=== PATIENT | female | born 1935 | race Caucasian/White ===

== ENCOUNTER 2016-09-23 14:36 | Emergency (ER) | payer MEDICARE ==
[~2016-09-23] VITALS: Ht 157.5 cm; Wt 68.2 kg
[2016-09-23 14:42] VITALS: BP 167/89; PULSE 77; TEMP 98.5
== END 2016-09-23 16:56 | disposition home or self-care (01) ==
LOC: COL.ER 14:36
DX: S82.832A Other fracture of upper and lower end of left fibula, initial encounter for closed fracture (principal); W01.0XXA Fall on same level from slipping, tripping and stumbling without subsequent striking against object, initial encounter; Y93.01 Activity, walking, marching and hiking; Y92.511 Restaurant or cafe as the place of occurrence of the external cause

== ENCOUNTER 2018-01-11 09:30 | Emergency (ER) | payer MEDICARE ==
[~2018-01-11] VITALS: Ht 154.9 cm; Wt 65.9 kg
[2018-01-11 09:31] VITALS: TEMP 97.8
[2018-01-11 10:46] VITALS: BP 149/96; PULSE 82
== END 2018-01-11 10:48 | disposition home or self-care (01) ==
LOC: COL.ER 09:30
DX: I10 Essential (primary) hypertension (principal)

== ENCOUNTER 2018-02-25 17:44 | Emergency (ER) | payer MEDICARE ==
[~2018-02-25] VITALS: Ht 154.9 cm; Wt 64.1 kg
[2018-02-25] MEDS ORDERED: PRINIVIL5 MG PO (18:14)
[2018-02-25 19:38] VITALS: BP 115/53; PULSE 83; TEMP 98.6
== END 2018-02-25 19:39 | disposition home or self-care (01) ==
LOC: COL.ER 17:44
DX: T36.3X5A Adverse effect of macrolides, initial encounter (principal); K52.1 Toxic gastroenteritis and colitis; K64.4 Residual hemorrhoidal skin tags

== ENCOUNTER → 2018-02-27 | Outpatient (CLI) | payer MEDICARE ==
[~2018-02-27] MED LIST: PRINIVIL5 MG PO
== END ==
LOC: COL.RAD 08:00
DX: K44.9 Diaphragmatic hernia without obstruction or gangrene (principal); R19.00 Intra-abdominal and pelvic swelling, mass and lump, unspecified site

== ENCOUNTER 2018-03-27 07:53 | Inpatient (IN) | payer MEDICARE ==
[2018-03-27] VITALS (16 sets, daily range): BP systolic 70–140; BP diastolic 36–89; PULSE 66–88; TEMP 97.7–98.4
[~2018-03-27] VITALS: Ht 154.9 cm; Wt 75.4 kg
[2018-03-27] MEDS ORDERED: PROLIA60 MG/ML SQ (08:50)
--- NOTE | 2018-03-27 08:50 | NUR ---
TO RM AT 0802- CALL LIGHT IN REACH DAUGHTERS AT BEDSIDE.
--- NOTE | 2018-03-27 14:30 | NUR ---
Patient has arrived to floor via bed from PACU. She is very drowsy. All she keeps saying is oh my goodness. She is not answering any other questions. She shakes her head yes when asked if having nausea. No vomiting. Bed alarm on. Family on their way from the waiting room. no other changes at this time.
--- NOTE | 2018-03-27 16:00 | NUR ---
[place] [facility] [place] blood pressure dropped to 70/36. It went back up to 107/73 once she was back in bed. We helped her move slowly and had her dangle before standing up. When she stood up she stated feeling dizzy. Once back in bed, she denied feeling dizzy. She still complains of nausea. She also stated having pressure like she needs to void. She was not able to void. Explained it could be from the surgery as well. Denies pain in any other areas. No other changes at this time. Family at bedside. Bed alarm on.
--- NOTE | 2018-03-27 18:35 | NUR ---
Patients vital signs dropped down to 74/[address] Ingram, 500ml NS bolus ordred. Patient also keep stating she has the urge to void and is unable to void. Straight cath ordered as well, one time. Patients heart rate is 84, oxygen level is 98% on 2L of oxygen. Straight catheterized patient and got back 200ml of anber odorous urine. No other changes at this time. Will continue to monitor.
--- NOTE | 2018-03-27 20:00 | NUR ---
Patient resting in bed at this time. Patient is alert and oriented, answers questions appropriately, but dozes frequently. Reported that patient has been hypotensive since surgery, IVF bolus in progress at this time. Patient currently denies needs, call light within reach.
[2018-03-27 22:15] LABS: HEMATOCRIT 42.9 % (37.0-47.0); HEMOGLOBIN 13.7 g/dl (12.5-16.0)
[2018-03-28] VITALS (22 sets, daily range): BP systolic 57–145; BP diastolic 42–72; PULSE 90–146; TEMP 98–99.5; O2SAT 86–100
--- NOTE | 2018-03-28 05:27 | NUR ---
Patient rested well overnight. Blood pressure remains low, patient is asymptomatic. Patient is alert and oriented while awake, rouses easily. IVF continue per order, frequent BP checks. Patient has continued to deny pain overnight. PO intake has been limited to ice chips. No further complaints of nausea overnight. Call light within reach, with continue to closely monitor
--- NOTE | 2018-03-28 07:30 | NUR ---
REPORT RECEIVED BY SHRUTI KING.
--- NOTE | 2018-03-28 07:35 | NUR ---
REPORT GIVEN TO SHRUTI NORMAN IN ICU. PATIENT TRANSFERRED TO ICU BED 6.
--- NOTE | 2018-03-28 07:39 | NUR ---
Report received from SHRUTI Larios.
--- NOTE | 2018-03-28 07:47 | NUR ---
Patient transferred to ICU#6 via bed from surgical, assessment complete, family at bedside. Call light within reach.
--- NOTE | 2018-03-28 09:56 | NUR ---
Dr. Justice here to place right IJ central line.
--- NOTE | 2018-03-28 10:20 | NUR ---
Ok to use right IJ central line, per Dr. Justice.
[2018-03-28 11:08] LABS: MEAN CELL VOLUME 95 fl (80.0-100.0); MEAN CORPUSCULAR HGB CONC 33 g/dl (33.0-37.0); MEAN PLATELET VOLUME 10.9 fl (7.4-10.4); PLATELET COUNT 134 K/mm3 (130-400); RED BLOOD COUNT 3.76 M/mm3 (4.10-5.30); REDCELL DISTRIBUTION WIDTH-CV 13.7 % (11.5-14.5)
[2018-03-28 11:09] LABS: HEMATOCRIT 35.8 % (37.0-47.0); HEMOGLOBIN 11.7 g/dl (12.5-16.0); MEAN CORPUSCULAR HEMOGLOBIN 31 pg (27.0-31.0)
[2018-03-28 11:16] LABS: CALCIUM 8.9 mg/dL (8.4-10.2); CREATININE, serum 1.82 mg/dL (0.52-1.25); POTASSIUM 4.9 mmol/L (3.4-5.0)
--- NOTE | 2018-03-28 13:06 | NUR ---
CVP is 3.
--- NOTE | 2018-03-28 15:53 | NUR ---
Patient repositioned for comfort, patient mildy confused at baseline. Daughters at bedside.
[2018-03-28 17:09] LABS: HEMOGLOBIN 10.5 g/dl (12.5-16.0)
--- NOTE | 2018-03-28 18:37 | NUR ---
150 mg IV amiodarone bolus started. Patient remains alert et confused, family at bedside.
--- NOTE | 2018-03-28 19:12 | NUR ---
Bedside report given to SHRUTI Ocampo.
[2018-03-28 19:46] LABS: CALCIUM 8.3 mg/dL (8.4-10.2); CREATININE, serum 1.81 mg/dL (0.52-1.25); POTASSIUM 4.7 mmol/L (3.4-5.0)
--- NOTE | 2018-03-28 22:16 | NUR ---
DESPITE PT ANSWERING ALL A&O QUESTIONS CORRECT AND APPROPRIATELY, PT DOES SHOES CONFUSION. PT ATTEMPTS TO GET OUT OF BED TO URINATE AND HAS TO BE REMINDED A [place] CATH IS IN PLACE. PT ALSO IS RESTLESS IN BED AND IS REMINDED FREQUENTLY TO USE CALL LIGHT FOR ASSISTANCE. BED ALARMS AND YELLOW SOCKS ARE ON. PT DENIES PAIN, WHEN ASKED ABOUT ABDOMINAL PAIN THEN LATER STATES HER ABD HURTS SOMETIME WHEN ITS TOUCHED BUT CANNOT REMEMBER WHERE IT HURTS.
[2018-03-29] VITALS (15 sets, daily range): BP systolic 77–147; BP diastolic 47–76; PULSE 87–141; TEMP 98.4–99.4
--- NOTE | 2018-03-29 | NUR ---
PT URINE OUTPUT HAS INCREASED. ADDITIONALLY, IT IS NOTED PT HAS NOW CONVERTED TO SR.
[2018-03-29 05:36] LABS: MEAN CELL VOLUME 95 fl (80.0-100.0); MEAN CORPUSCULAR HGB CONC 33 g/dl (33.0-37.0); MEAN PLATELET VOLUME 11.2 fl (7.4-10.4); PLATELET COUNT 119 K/mm3 (130-400); RED BLOOD COUNT 3.06 M/mm3 (4.10-5.30); REDCELL DISTRIBUTION WIDTH-CV 13.8 % (11.5-14.5)
[2018-03-29 05:38] LABS: HEMOGLOBIN 9.6 g/dl (12.5-16.0); MEAN CORPUSCULAR HEMOGLOBIN 31 pg (27.0-31.0)
[2018-03-29 05:52] LABS: CREATININE, serum 1.71 mg/dL (0.52-1.25); POTASSIUM 4.7 mmol/L (3.4-5.0)
--- NOTE | 2018-03-29 07:00 | NUR ---
Report recieved from SHRUTI Ocampo.
[2018-03-29 07:06] LABS: BAND 69 % (0-10); LYMPHOCYTE 11 % (20.0-51.0); NEUTROPHILS 16 % (42.0-75.2); PLATELET ESTIMATE DECREASED (NORMAL)
--- NOTE | 2018-03-29 07:15 | NUR ---
Patient went back into afib/rvr.
--- NOTE | 2018-03-29 07:30 | NUR ---
Assessment complete, patient resting in bed, remains pleasantly confused, AM care complete, patient repositioned for comfort. Call light within reach.
--- NOTE | 2018-03-29 07:45 | NUR ---
Thaddeus gtt changed from mcg/kg/min to mcg/min.
--- NOTE | 2018-03-29 09:03 | NUR ---
Family at bedside.
--- NOTE | 2018-03-29 09:55 | NUR ---
technical engineer in room for ECHO.
--- NOTE | 2018-03-29 12:03 | NUR ---
Dr. Varela here for family meeting.
[2018-03-29 12:33] LABS: ARTERIAL BLD GAS O2 SATURATION 93.6 % (92-100); ARTERIAL BLD GAS TCO2 CT 16.9; ARTERIAL BLOOD GAS BASE EXCESS -9.3 (-2-2); ARTERIAL BLOOD GAS HCO3 15.9 meq/L (22-26); ARTERIAL BLOOD GAS PCO2 32.3 mmHg (35-45); ARTERIAL BLOOD GAS PO2 68.2 mmHg (80-100); ARTERIAL BLOOD GAS pH 7.31 (7.35-7.45)
[2018-03-29 12:34] LABS: INR 1.4 (0.8-3.0); PROTHROMBIN TIME 16.1 SECONDS (9.7-12.8)
[2018-03-29 12:35] LABS: CALCIUM 7.8 mg/dL (8.4-10.2); CREATININE, serum 1.56 mg/dL (0.52-1.25); POTASSIUM 4.5 mmol/L (3.4-5.0)
--- NOTE | 2018-03-29 12:40 | NUR ---
Amadou Ferguson CRNA here to place arterial line.
[2018-03-29 15:59] LABS: ARTERIAL BLD GAS O2 SATURATION 93.7 % (92-100); ARTERIAL BLD GAS TCO2 CT 14.4; ARTERIAL BLOOD GAS BASE EXCESS -11.6 (-2-2); ARTERIAL BLOOD GAS HCO3 13.6 meq/L (22-26); ARTERIAL BLOOD GAS PCO2 28.3 mmHg (35-45); ARTERIAL BLOOD GAS PO2 70.9 mmHg (80-100)
--- NOTE | 2018-03-29 16:43 | NUR ---
Patient sats 91%, O2 increased to 3L/NC.
--- NOTE | 2018-03-29 19:04 | NUR ---
Bedside report given to SHRUTI Ocampo.
[2018-03-29 21:17] LABS: ARTERIAL BLD GAS O2 SATURATION 90.7 % (92-100); ARTERIAL BLD GAS TCO2 CT 19.8; ARTERIAL BLOOD GAS BASE EXCESS -5.6 (-2-2); ARTERIAL BLOOD GAS HCO3 18.8 meq/L (22-26); ARTERIAL BLOOD GAS PCO2 32.7 mmHg (35-45); ARTERIAL BLOOD GAS PO2 59.4 mmHg (80-100); ARTERIAL BLOOD GAS pH 7.38 (7.35-7.45)
--- NOTE | 2018-03-29 21:30 | NUR ---
PT TITRATED DOWN TO 70ML/HR OF IV BICARB PER PROVIDERS INSTRUCTIONS.
--- NOTE | 2018-03-29 22:03 | NUR ---
PT LEFT FLANK RED, BRUISING, FIRM. PT DENIES PAIN. EICU CONTACTED REGARDING FINDINGS.
[2018-03-29 23:44] LABS: HEMATOCRIT 27.3 % (37.0-47.0); HEMOGLOBIN 9.1 g/dl (12.5-16.0)
[2018-03-30] VITALS (10 sets, daily range): BP systolic 87–130; BP diastolic 47–84; PULSE 76–147; TEMP 97.5–98
[2018-03-30 05:23] LABS: MEAN CELL VOLUME 94 fl (80.0-100.0); MEAN CORPUSCULAR HGB CONC 33 g/dl (33.0-37.0); PLATELET COUNT 91 K/mm3 (130-400); RED BLOOD COUNT 2.99 M/mm3 (4.10-5.30); REDCELL DISTRIBUTION WIDTH-CV 13.9 % (11.5-14.5)
[2018-03-30 05:25] LABS: HEMATOCRIT 28.1 % (37.0-47.0); HEMOGLOBIN 9.3 g/dl (12.5-16.0); MEAN CORPUSCULAR HEMOGLOBIN 31 pg (27.0-31.0)
[2018-03-30 05:32] LABS: INR 1.3 (0.8-3.0); PROTHROMBIN TIME 14.4 SECONDS (9.7-12.8)
[2018-03-30 05:35] LABS: BILIRUBIN,TOTAL 0.7 mg/dL (0.0-1.0); CALCIUM 8.1 mg/dL (8.4-10.2); CREATININE, serum 1.37 mg/dL (0.52-1.25); POTASSIUM 4.4 mmol/L (3.4-5.0); TOTAL PROTEIN 4.6 gm/dL (6.4-8.2)
[2018-03-30 06:02] LABS: ARTERIAL BLD GAS O2 SATURATION 93.9 % (92-100); ARTERIAL BLD GAS TCO2 CT 24.6; ARTERIAL BLOOD GAS BASE EXCESS -3.5 (-2-2); ARTERIAL BLOOD GAS HCO3 23.1 meq/L (22-26); ARTERIAL BLOOD GAS PCO2 48.7 mmHg (35-45); ARTERIAL BLOOD GAS PO2 73.3 mmHg (80-100); ARTERIAL BLOOD GAS pH 7.29 (7.35-7.45)
[2018-03-30 06:29] LABS: BAND 14 % (0-10); LYMPHOCYTE 3 % (20.0-51.0); NEUTROPHILS 82 % (42.0-75.2)
[2018-03-30 06:34] LABS: PLATELET ESTIMATE DECREASED (NORMAL)
[2018-03-30 06:36] LABS: DOHLE BODIES PRESENT
[2018-03-30 06:37] LABS: POLYCHROMASIA 1+
--- NOTE | 2018-03-30 07:00 | NUR ---
DR. KENNEY AT BEDSIDE FOR ROUNDS.
--- NOTE | 2018-03-30 07:20 | NUR ---
REPORT RECEIVED AT BEDSIDE FROM SHRUTI GUIDRY. LINES AND MEDICATIONS REVIEWED.
--- NOTE | 2018-03-30 08:00 | NUR ---
DR. KATZ AT BEDSIDE, ATTEMPTED TO DO THORACENTESIS THROUGH R LUNG, PROCEDURE STOPPED DUE TO HEMOTHORAX. RADILOGY CONTACTED TO DO PROCEDURE INSTEAD. ORDERS FOR XRAY AND BIPAP RECEIVED,
--- NOTE | 2018-03-30 09:30 | NUR ---
DR. KIMBROUGH AT BEDSIDE FOR ROUNDS.
--- NOTE | 2018-03-30 10:25 | NUR ---
DR. ROSS AT BEDSIDE FOR ROUNDS. STATES PT CAN BE SWITCHED TO ORAL AMIODARONE 400 MG IF TOLERATING PO.
[2018-03-30 11:21] LABS: MUCOUS Present /lpf; PH 5 (5-8); SQUAMOUS EPITHELIAL None Seen /hpf; URINE APPEARANCE Clear; URINE BACTERIA None Seen /hpf; URINE BILIRUBIN Negative (NEGATIVE); URINE BLOOD 2+ (NEGATIVE); URINE COLOR Yellow; URINE GLUCOSE Negative (NEGATIVE); URINE KETONE Negative (NEGATIVE); URINE LEUKOCYTE ESTERASE Negative (NEGATIVE); URINE NITRATE Negative (NEGATIVE); URINE PROTEIN(semi-quant) 1+ (NEGATIVE); URINE RBC None Seen /hpf; URINE UROBILINOGEN Negative (NEGATIVE)
[2018-03-30 11:34] LABS: COLLECTION METHOD CATHETER
[2018-03-30 12:09] LABS: ARTERIAL BLD GAS O2 SATURATION 94.6 % (92-100); ARTERIAL BLD GAS TCO2 CT 24.5; ARTERIAL BLOOD GAS HCO3 23.2 meq/L (22-26); ARTERIAL BLOOD GAS PCO2 41.5 mmHg (35-45); ARTERIAL BLOOD GAS PO2 73.9 mmHg (80-100); ARTERIAL BLOOD GAS pH 7.37 (7.35-7.45)
--- NOTE | 2018-03-30 12:15 | NUR ---
First visit from the homeland security program specialist. No needs right now.
--- NOTE | 2018-03-30 14:51 | NUR ---
PLEURAL FLUID PH: "VALUE IS ABOVE REPORTABLE RANGE"
[2018-03-30 15:16] LABS: PLEURAL FLUID RBC 9000 /mm3 (0-0); PLEURAL FLUID WBC 2380 /mm3
[2018-03-30 15:20] LABS: PLEURAL FLUID APPEARANCE HAZY; PLEURAL FLUID COLOR YELLOW
[2018-03-30 15:26] LABS: GLUCOSE,PLEURAL FLUID 104 mg/dL
[2018-03-30 15:30] LABS: TOTAL PROTEIN,PLEURAL FLUID < 2.0 gm/dL
--- NOTE | 2018-03-30 16:56 | NUR ---
SW attempted to meet with patient however nurse reports she just had a procedure and is not awake to talk and family is not here. Case Management to follow tomorrow.
--- NOTE | 2018-03-30 19:36 | NUR ---
REPORT GIVEN TO ROMÁN Stewart RN. MEDICATIONS AND LINES REVIEWED AT BEDSIDE.
--- NOTE | 2018-03-30 19:40 | NUR ---
Bedside report recieved from SHRUTI Tong. Patient resting in bed with BiPap in place 27/09 at 30%. Patient participates in report and denies and questions or needs. Right ART line is CDI and with correlating waveform to cuff pressures. RFA peripheral line is and this nurse will discontinue. RIJ is CDI with Amio running to white port at 0.5mg/min, Bicarb to brown port at 70ml/hr, and levophed running at 0.07mcg/kg/min to blue port. Abdomen CDI with lap sites x5 EDU. [place] to dependent drainage with clear yellow output noted. Bilateral SCD's in place. Bed in low and locked position, call light within reach, rails up x3. Care assumed at this time.
[2018-03-30 20:14] LABS: ARTERIAL BLD GAS O2 SATURATION 96.6 % (92-100); ARTERIAL BLD GAS TCO2 CT 27.9; ARTERIAL BLOOD GAS BASE EXCESS 1.6 (-2-2); ARTERIAL BLOOD GAS HCO3 26.6 meq/L (22-26); ARTERIAL BLOOD GAS PCO2 43.9 mmHg (35-45)
--- NOTE | 2018-03-30 20:21 | NUR ---
[address] Varela.
--- NOTE | 2018-03-30 20:45 | NUR ---
Patient uses call light for assistance with bedpan. She is unable to pass stool but reports passing gas at this time.
[2018-03-31] VITALS (9 sets, daily range): BP systolic 91–125; BP diastolic 47–67; PULSE 73–132; TEMP 97.9–98.9
[2018-03-31 05:08] LABS: ARTERIAL BLD GAS O2 SATURATION 95.1 % (92-100); ARTERIAL BLD GAS TCO2 CT 26.2; ARTERIAL BLOOD GAS BASE EXCESS 0.9 (-2-2); ARTERIAL BLOOD GAS PCO2 37.9 mmHg (35-45); ARTERIAL BLOOD GAS PO2 78.3 mmHg (80-100); ARTERIAL BLOOD GAS pH 7.44 (7.35-7.45)
[2018-03-31 05:16] LABS: MEAN CELL VOLUME 92 fl (80.0-100.0); MEAN CORPUSCULAR HGB CONC 34 g/dl (33.0-37.0); MEAN PLATELET VOLUME 10.7 fl (7.4-10.4); PLATELET COUNT 69 K/mm3 (130-400); RED BLOOD COUNT 2.48 M/mm3 (4.10-5.30); REDCELL DISTRIBUTION WIDTH-CV 13.7 % (11.5-14.5)
[2018-03-31 05:18] LABS: HEMATOCRIT 22.7 % (37.0-47.0); HEMOGLOBIN 7.7 g/dl (12.5-16.0); INR 1.2 (0.8-3.0); MEAN CORPUSCULAR HEMOGLOBIN 31 pg (27.0-31.0); PROTHROMBIN TIME 13.2 SECONDS (9.7-12.8)
[2018-03-31 05:21] LABS: CALCIUM 8.5 mg/dL (8.4-10.2); CREATININE, serum 1.13 mg/dL (0.52-1.25); POTASSIUM 4.2 mmol/L (3.4-5.0); TOTAL PROTEIN 4.3 gm/dL (6.4-8.2)
--- NOTE | 2018-03-31 05:43 | NUR ---
Levophed gtt placed on standby at this time. See associated documentation.
[2018-03-31 06:19] LABS: BAND 9 % (0-10); LYMPHOCYTE 3 % (20.0-51.0); NEUTROPHILS 84 % (42.0-75.2)
[2018-03-31 06:20] LABS: PLATELET ESTIMATE DECREASED (NORMAL)
[2018-03-31 09:25] LABS: IRON,SERUM < 10 ug/dL (35-150)
[2018-03-31 09:35] LABS: TOTAL IRON BINDING CAPACITY 154 ug/dL (265-497)
[2018-03-31 10:01] LABS: FERRITIN 855 ng/mL (11-264)
--- NOTE | 2018-03-31 10:48 | NUR ---
steelworker attended clinical rounds and met with patient and daughter, Radha #[phone] to discuss discharge planning. Patient lives alone in [address] on [address] in [place]. Patient ambulates with a cane and also has a walker at home. Patient's children provide transportation and any assistance as needed. Patient's primary care provider is Dr Pablo. Worker provided information on possible rehab options and will await physical therapy recomendations for disposition. Family is supportive of rehab if that is what patient requires. Patient's daughter, Tiffani, works in [employer] and can come to patient's room for further updates and discussion of discharge planning.
[2018-03-31 16:15] LABS: GLUCOSE,PLEURAL FLUID 75 mg/dL; TOTAL PROTEIN,PLEURAL FLUID < 2.0 gm/dL
[2018-03-31 16:25] LABS: PLEURAL FLUID RBC 243000 /mm3 (0-0); PLEURAL FLUID WBC 7435 /mm3
[2018-03-31 16:27] LABS: PLEURAL FLUID APPEARANCE CLOUDY; PLEURAL FLUID COLOR RED
--- NOTE | 2018-03-31 19:10 | NUR ---
Bedside report given to Mylene BAHENA.
--- NOTE | 2018-03-31 19:20 | NUR ---
Bedside report received from SHRUTI Perez.
--- NOTE | 2018-03-31 20:00 | NUR ---
Assessment complete at this time. Patient is resting comfortably on BiPAP. Let her know that arterial line would be removed tonight. Patient has no complaints of pain. Lap sites are clean, dry, and well approximated. No current needs at this time. Will continue to monitor. Call light within reach.
[2018-04-01] VITALS: BP 102/62; PULSE 70; TEMP 98
--- NOTE | 2018-04-01 | NUR ---
Assessment complete. Patient is resting comfortably on the BiPAP. Patient complains of "pins and needles" in her legs, repositioned for comfort. Patient has no complaints of pain at this time. Patient's bowel sounds are noted to be audible in all quadrants. No further needs at this time. Will continue to monitor. Call light within reach.
--- NOTE | 2018-04-01 01:10 | NUR ---
Patient's arterial line removed at this time. Pressure held for 5 minutes. No bleeding was noted at the site after pressure was held. Pressure dressing applied. Patient tolerated well. Catheter was intact. Will continue to monitor site.
--- NOTE | 2018-04-01 02:30 | NUR ---
Patient has flipped back into afib/flutter at this time.
--- NOTE | 2018-04-01 03:15 | NUR ---
Notified MARTY of patient's rhythm change to afib/flutter. Spoke with Catalina. She will notify this nurse if any new orders.
[2018-04-01 04:00] VITALS: BP 99/64; PULSE 117; TEMP 97.9
--- NOTE | 2018-04-01 04:00 | NUR ---
Assessment complete at this time. Patient sleeping comfortably on BiPAP. Patient has complaints again of tingling in her legs, repositioned for comfort. Patient's arterial line site remains clean and dry. Pressure dressing still in place. Patient has no other needs at this time. Will continue to monitor. Call light within reach.
[2018-04-01 05:25] LABS: ARTERIAL BLD GAS O2 SATURATION 97.8 % (92-100); ARTERIAL BLD GAS TCO2 CT 27.3; ARTERIAL BLOOD GAS BASE EXCESS 2.5 (-2-2); ARTERIAL BLOOD GAS HCO3 26.2 meq/L (22-26); ARTERIAL BLOOD GAS PCO2 36.6 mmHg (35-45); ARTERIAL BLOOD GAS PO2 128.8 mmHg (80-100); ARTERIAL BLOOD GAS pH 7.47 (7.35-7.45)
[2018-04-01 06:09] LABS: MEAN CELL VOLUME 91 fl (80.0-100.0); MEAN CORPUSCULAR HGB CONC 34 g/dl (33.0-37.0); MEAN PLATELET VOLUME 11.1 fl (7.4-10.4); PLATELET COUNT 77 K/mm3 (130-400); REDCELL DISTRIBUTION WIDTH-CV 13.9 % (11.5-14.5)
[2018-04-01 06:13] LABS: INR 1.1 (0.8-3.0); PROTHROMBIN TIME 12.4 SECONDS (9.7-12.8)
--- NOTE | 2018-04-01 06:15 | NUR ---
Patient back in normal sinus at this time.
[2018-04-01 06:16] LABS: HEMATOCRIT 21.9 % (37.0-47.0); HEMOGLOBIN 7.5 g/dl (12.5-16.0); MEAN CORPUSCULAR HEMOGLOBIN 31 pg (27.0-31.0)
--- NOTE | 2018-04-01 06:22 | NUR ---
Notified HARDY that patient has flipped back to normal sinus.
[2018-04-01 06:29] LABS: ALBUMIN 1.9 gm/dL (3.5-5.0); CALCIUM 8.8 mg/dL (8.4-10.2); CREATININE, serum 0.97 mg/dL (0.52-1.25); MAGNESIUM 1.7 mg/dL (1.6-2.3); POTASSIUM 4.3 mmol/L (3.4-5.0); TOTAL PROTEIN 4.3 gm/dL (6.4-8.2)
[2018-04-01 06:57] LABS: BAND 14 % (0-10); LYMPHOCYTE 14 % (20.0-51.0); NEUTROPHILS 66 % (42.0-75.2); PLATELET ESTIMATE DECREASED (NORMAL)
--- NOTE | 2018-04-01 07:00 | NUR ---
REPORT RECEIVED FROM SHRUTI CHAVIRA.
--- NOTE | 2018-04-01 07:32 | NUR ---
Bedside report given to SHRUTI Avalos
[2018-04-01 08:00] VITALS: BP 109/54; PULSE 79; TEMP 98.6
--- NOTE | 2018-04-01 09:51 | NUR ---
REPORT GIVEN TO ROMÁN Blood RN
[2018-04-01 12:00] VITALS: BP 100/50; PULSE 72; TEMP 98.2
--- NOTE | 2018-04-01 12:39 | NUR ---
PATIENT WAS ASSISTED WITH SITTING IN A CHAIR. SHE TOLERATED WELL AND WAS ABLE TO STAND WITH ASSISTANCE. LUNCH WAS ORDERED. FAMILY AT BEDSIDE.
[2018-04-01 16:00] VITALS: BP 102/67; PULSE 80; TEMP 98.4
--- NOTE | 2018-04-01 18:42 | NUR ---
PATIENT HAS HAD A VERY GOOD DAY. SHE WAS ABLE TO GET OUT OF BED SEVERAL TIMES AND SIT IN THE RECLINER. SHE ALSO SAT ON THE COMMODE AND HAD A LARGE SOFT BOWEL MOVEMENT. PATIENT WAS ABLE TO STAND WITH JUST A 1 ASSIST. SHE HAS ALSO BEEN ABLE TO EAT A FAIR AMOUNT OF FOOD AND TOLERATED WELL.
--- NOTE | 2018-04-01 19:15 | NUR ---
Bedside report received from Afshan Blood RN.
--- NOTE | 2018-04-01 19:22 | NUR ---
Report given to SHRUTI Chakraborty.
[2018-04-01 20:00] VITALS: BP 114/64; PULSE 71; TEMP 98
--- NOTE | 2018-04-01 20:00 | NUR ---
Shift assessment complete at this time. Patient is requesting to get back in bed and be put on BiPAP. Assisted patient back to bed with gait belt, patient is wobbly and awkward on her feet. Patient now comfortable in bed. BiPAP placed. No further needs at this time. Will continue to monitor. Call light within reach.
[2018-04-02] VITALS: BP 113/66; PULSE 66; TEMP 98.4
--- NOTE | 2018-04-02 | NUR ---
Patient asleep on the BiPAP at this time. Patient has complaints of pins and needles down her legs and in her feet, but no pain noted. Repositioned for comfort. Patient has no current needs. Will continue to monitor. Call light within reach.
[2018-04-02 04:00] VITALS: BP 107/62; PULSE 65; TEMP 98.4
--- NOTE | 2018-04-02 04:00 | NUR ---
Patient sleeping comfortably at this time. Patient remains on BiPAP. VSS. No current needs at this time. Will continue to monitor. Call light within reach.
[2018-04-02 05:50] LABS: MEAN CELL VOLUME 92 fl (80.0-100.0); MEAN CORPUSCULAR HGB CONC 33 g/dl (33.0-37.0); MEAN PLATELET VOLUME 10.6 fl (7.4-10.4); PLATELET COUNT 97 K/mm3 (130-400); RED BLOOD COUNT 2.26 M/mm3 (4.10-5.30); REDCELL DISTRIBUTION WIDTH-CV 13.9 % (11.5-14.5)
[2018-04-02 05:51] LABS: HEMATOCRIT 20.7 % (37.0-47.0); HEMOGLOBIN 6.9 g/dl (12.5-16.0); MEAN CORPUSCULAR HEMOGLOBIN 31 pg (27.0-31.0)
[2018-04-02 05:58] LABS: ALBUMIN 1.8 gm/dL (3.5-5.0); BILIRUBIN,TOTAL 0.9 mg/dL (0.0-1.0); CALCIUM 8.7 mg/dL (8.4-10.2); CREATININE, serum 0.92 mg/dL (0.52-1.25); MAGNESIUM 2.1 mg/dL (1.6-2.3); POTASSIUM 3.9 mmol/L (3.4-5.0); TOTAL PROTEIN 4.2 gm/dL (6.4-8.2)
[2018-04-02 06:20] LABS: BAND 6 % (0-10); LYMPHOCYTE 7 % (20.0-51.0); NEUTROPHILS 81 % (42.0-75.2)
[2018-04-02 06:21] LABS: PLATELET ESTIMATE DECREASED (NORMAL)
--- NOTE | 2018-04-02 07:00 | NUR ---
Dr Varela at the bedside at this time.
--- NOTE | 2018-04-02 07:45 | NUR ---
Patient heart rate has accelerated, appears to be irregular. Rhythm 119 beats/min.
--- NOTE | 2018-04-02 07:52 | NUR ---
Bedside report received from SHRUTI Chakraborty. Care of patient assumed at this time.
--- NOTE | 2018-04-02 07:54 | NUR ---
Bedside report given to SHRUTI Macias.
[2018-04-02 08:00] VITALS: BP 114/62; PULSE 102; TEMP 99
--- NOTE | 2018-04-02 08:31 | NUR ---
Patient assessment complete. Patient is resting in bed. Denies difficulty breathing. States she is having pain in her abdomen and in her feet, which is a chronic issue for her. Patient pain increases when she is moved in bed. Patient is alert and oriented at this time. Will continue to monitor.
--- NOTE | 2018-04-02 10:30 | NUR ---
Patient heart rate in 130s/140s. Dr. Bedoya at bedside. Will notify cardiology.
--- NOTE | 2018-04-02 11:45 | NUR ---
Patient heart rate appears to be back in a sinus rhythm, rate 88 beats/min.
--- NOTE | 2018-04-02 11:50 | NUR ---
track repair worker attended clinical rounds and met with patient and children regarding planning for skilled rehab upon discharge. Worker provided information on acute and skilled rehab. Patient and family agreed that skilled care would be the best plan. Worker provided skilled options and patient/family chose 1. [facility] 2. [facility]. Worker provided a referral to [facility] and await their screening. Plan is to transfer to medical floor, possibly tomorrow.
--- NOTE | 2018-04-02 12:00 | NUR ---
Patient is up in chair at this time. Denies any pain. Patient's heart rate appears to be in a normal rhythm at this time. Will continue to monitor.
[2018-04-02 12:11] VITALS: BP 108/69; PULSE 92; TEMP 98.6
[2018-04-02 14:09] LABS: POTASSIUM 3.7 mmol/L (3.4-5.0)
--- NOTE | 2018-04-02 14:49 | NUR ---
Choice form completed by daughter, Radha. Mahnaz Baker states they will follow while patient is in ICU and begin the pre-cert with [employer] for admission to skilled care upon discharge.
[2018-04-02 16:00] VITALS: BP 137/82; PULSE 81; TEMP 97.7
--- NOTE | 2018-04-02 16:00 | NUR ---
Patient is resting in bed. PT helped patient to commode and back to bed from chair. No patient complaints at this time. Will continue to monitor.
--- NOTE | 2018-04-02 19:09 | NUR ---
Report given to SHRUTI Chakraborty.
--- NOTE | 2018-04-02 19:10 | NUR ---
Bedside report received from SHRUTI Macias
[2018-04-02 20:00] VITALS: BP 119/70; PULSE 77; TEMP 98.3
--- NOTE | 2018-04-02 20:00 | NUR ---
Shift assessment complete at this time. Patient Has just finished her dinner. She ate about 50% of the meal. Patient is requesting to have her HOB laid down so she can rest now and "stretch out". Patient has complaints of 1/10 pain in her feet, but is not requesting anything for pain right now. Patient is now resting comfortably and has no needs. Requsts to be left off of the BiPAP for now. Will continue to monitor. Call light within reach.
[2018-04-03] VITALS: BP 125/70; PULSE 79; TEMP 98.7
--- NOTE | 2018-04-03 | NUR ---
Patient resting in bed at this time. Patient awakened briefly to be turned to a side and have linens changed. Patient had a small incident of incontinence of stool. Patient given a bed bath and pericare provided. Patient is now resting comfortably. No complaints of pain or discomfort. Will continue to monitor. Call light within reach.
[2018-04-03 04:00] VITALS: BP 128/71; PULSE 83; TEMP 97.9
--- NOTE | 2018-04-03 04:00 | NUR ---
Patient had complaints of 5/10 pain on her left upper abdomen where her incisions are located. She described the pain as sharp and pulling. Medication was provided. Patient now rates pain at 2/10 and says she is much more comfortable now. Patient had another trace incontinent stool. Cleaned with cleansing cloths. Patient has no further needs at this time. Will continue to monitor. Call light within reach.
[2018-04-03 06:40] LABS: MEAN CELL VOLUME 90 fl (80.0-100.0); MEAN CORPUSCULAR HGB CONC 34 g/dl (33.0-37.0); MEAN PLATELET VOLUME 10.5 fl (7.4-10.4); PLATELET COUNT 149 K/mm3 (130-400); RED BLOOD COUNT 2.76 M/mm3 (4.10-5.30); REDCELL DISTRIBUTION WIDTH-CV 14.2 % (11.5-14.5)
[2018-04-03 06:42] LABS: HEMATOCRIT 24.8 % (37.0-47.0); HEMOGLOBIN 8.5 g/dl (12.5-16.0); MEAN CORPUSCULAR HEMOGLOBIN 31 pg (27.0-31.0)
[2018-04-03 06:54] LABS: CALCIUM 8.7 mg/dL (8.4-10.2); CREATININE, serum 0.98 mg/dL (0.52-1.25); POTASSIUM 3.8 mmol/L (3.4-5.0)
[2018-04-03 07:20] LABS: BAND 12 % (0-10); LYMPHOCYTE 9 % (20.0-51.0); METAMYELOCYTE 2 % (0-0); MYELOCYTE 1 % (0-0); NEUTROPHILS 71 % (42.0-75.2); NUCLEATED RED BLOOD CELL 1 (0-6); PLATELET ESTIMATE DECREASED (NORMAL)
[2018-04-03 07:23] LABS: POLYCHROMASIA 1+
--- NOTE | 2018-04-03 07:45 | NUR ---
Bedside report given to SHRUTI Cavanaugh.
--- NOTE | 2018-04-03 07:45 | NUR ---
Bedside report received from SHRUTI Chakraborty.
[2018-04-03 08:00] VITALS: BP 142/78; PULSE 78; TEMP 98.6
--- NOTE | 2018-04-03 08:00 | NUR ---
Assessment completed. Pt denies any pain at this time. Tolerates repositioning. VSS. Call light in reach.
--- NOTE | 2018-04-03 11:30 | NUR ---
KRYSTIAN Marte APRN at bedside to insert PICC line.
[2018-04-03 12:00] VITALS: BP 133/75; PULSE 82; TEMP 98.1
--- NOTE | 2018-04-03 13:00 | NUR ---
physical therapy at bedside working with pt. x1 assist pt to chair with gait belt.
--- NOTE | 2018-04-03 14:35 | NUR ---
Report given to Aakash scenic arts supervisor. x1 assist pt to bed with gait belt. Pt a little unsteady on feet. parra catheter dc'd. Pt tolerated well. Right IJ TLC catheter dc'd. Catheter tip intact, sent to lab for culture. Pressure held for 5 min and gauze and tegaderm applied to site. Pt tolerated well. Transferred pt to room 345 via bed. Aakash scenic arts supervisor updated.
--- NOTE | 2018-04-03 14:45 | NUR ---
report from Afshan BAHENA ICU @[id number]. pt settled to room Denies needs at this time.
[2018-04-03 16:00] VITALS: BP 118/76; PULSE 89; TEMP 98
[2018-04-03 19:14] VITALS: BP 145/79; PULSE 98; TEMP 98
--- NOTE | 2018-04-03 20:40 | NUR ---
Pt. laying in bed at this time. Pt. is A&OX3, assessment complete. PICC to rt. upper arm patent. Pt. denies pain or other needs, call light within reach.
[2018-04-04] VITALS (7 sets, daily range): BP systolic 119–146; BP diastolic 67–83; PULSE 86–126; TEMP 97.2–98.2
--- NOTE | 2018-04-04 01:50 | NUR ---
Call from [facility] reporting pt. increased heart rate with possible a-fib. Ekg taken, SAL Brasher, and Dr. Dia notified. No new orders received. Vitals stable besides heart rate. Pt. denies and SOB or chest pains. Call light within reach.
[2018-04-04 02:38] LABS: MEAN CELL VOLUME 91 fl (80.0-100.0); MEAN CORPUSCULAR HGB CONC 34 g/dl (33.0-37.0); MEAN PLATELET VOLUME 10.1 fl (7.4-10.4); PLATELET COUNT 170 K/mm3 (130-400); RED BLOOD COUNT 2.67 M/mm3 (4.10-5.30); REDCELL DISTRIBUTION WIDTH-CV 14.4 % (11.5-14.5)
[2018-04-04 02:39] LABS: HEMATOCRIT 24.2 % (37.0-47.0); HEMOGLOBIN 8.1 g/dl (12.5-16.0); MEAN CORPUSCULAR HEMOGLOBIN 30 pg (27.0-31.0)
[2018-04-04 02:49] LABS: CALCIUM 8.9 mg/dL (8.4-10.2); CREATININE, serum 0.89 mg/dL (0.52-1.25); MAGNESIUM 1.7 mg/dL (1.6-2.3); POTASSIUM 3.9 mmol/L (3.4-5.0)
[2018-04-04 02:58] LABS: BAND 11 % (0-10); EOSINOPHIL 1 % (0-4); LYMPHOCYTE 12 % (20.0-51.0); METAMYELOCYTE 3 % (0-0); NEUTROPHILS 66 % (42.0-75.2)
[2018-04-04 02:59] LABS: ANISOCYTOSIS 1+; HYPOCHROMIA 1+; POIKILOCYTOSIS 1+; POLYCHROMASIA 1+
--- NOTE | 2018-04-04 06:18 | NUR ---
Pt. slept off and on through the night. Pt. remains A&OX3. PICC to rt. upper arm patent. Pt. heart rate has stayed in the mid 80's to low 90's through the rest of the night. Pt. denies pain or other needs, call light within reach.
--- NOTE | 2018-04-04 09:12 | NUR ---
Patient up to the bathroom, she is incontinent of urine. She voided & had stool. assisted with pericare. activity enouraged today. She is now sitting in chair. blenderized breakfast ordered. She denies nausea, some issues with swallowing. Picc to RUE. Edema to upper & lower extremities. Patient abdominal lap site edges well approximated. Tiburcio colon
--- NOTE | 2018-04-04 12:10 | NUR ---
[facility] never received Referral. Sent new ref for patient and faxed updates to [facility]. Nothing further
--- NOTE | 2018-04-04 12:39 | NUR ---
Patient up to the bathroom, continues to have incontience of urine. Patient assisted with shower, reports feeling "fresh" after. She is ready to take a nap this afternoon. Warm blanket provided. She will eat after a nap. Denies the need for pain medication, just reports being exhausted. Will darlene.
--- NOTE | 2018-04-04 16:15 | NUR ---
Patient resting in bed. She has been continent the last 2 times up to the bathroom. Her dyspnea on exertion was also improved this last time up to the bathroom, really encouraged her to breath slow & steady. She has been napping, catching up on sleep. Next time she is up to the bathroom I will encourage her to sit up in the chair and order dinner. K+ replacement with grape juice.
--- NOTE | 2018-04-04 17:56 | NUR ---
Patient dinner ordered. Will enourage PO intake. Patient continues to report pain managed. Will montior & report off to mikael Alcantara
--- NOTE | 2018-04-04 18:28 | NUR ---
Patient slowly eating her dinner, minimal appetite, but reports the food taste good.
--- NOTE | 2018-04-04 20:53 | NUR ---
Pt. laying in bed at this time. Pt. is A&OX3, assessment complete PICC to rt. upper arm patent. Five abd. lap sites noted, edges well approximated. Pt. denies pain or other needs at this time. Call light within reach.
[2018-04-05 03:42] VITALS: BP 134/65; PULSE 82; TEMP 98.9
--- NOTE | 2018-04-05 05:43 | NUR ---
Pt. slept well through the night. Pt. remains A&OX3. PICC to rt. upper arm remains patent. Pt. denies pain or other needs.
[2018-04-05 07:57] VITALS: BP 136/67; PULSE 79; TEMP 97.8
--- NOTE | 2018-04-05 08:00 | NUR ---
PATIENT IS DROWSY THIS MORNING AND RESTING IN BED. PATIENT IS A&O. IRREGULAR HEART RHYTHM NOTED WITH REGULAR HEART RATE, LOW BLOOD PRESSURE NOTED, OTHERWISE VSS. PATIENT STATES THAT SHE FEELS SHORT OF BREATH WITH ACTIVITY. ALL LUNG MCKINNEY CLEAR UPON AUSCULTATION. PATIENT DENIES A PRODUCTIVE COUGH. BOWEL SOUNDS HYPOACTIVE ALL FOUR QUADRANTS. PATIENT TOLERATING FOOD & LIQUIDS WITHOUT ANY COMPLAINTS OF N/V. ABDOMINAL LAP SITES X5 PROCESS ENGINEERING MANAGER WITH EDGES WELL APPROXIMATED. GENERALIZED EDEMA NOTED. POSITIVE PEDAL PULSES EQUAL BILATERALLY. 3+ PITTING-EDEMA TO BLE NOTED. SCD'S TO BLE. PICC LINE TO RUE. BREAKFAST TRAY EATEN. CALL LIGHT WITHIN REACH. PATIENT DENIES ANY OTHER NEEDS AT THIS TIME. PHYSICAL THERAPY. ASSISTED PATIENT TO THE CHAIR.
[2018-04-05 11:33] VITALS: BP 120/70; PULSE 85; TEMP 97.7
--- NOTE | 2018-04-05 12:25 | NUR ---
PATIENT CALLED OUT WITH COMPLAINTS OF NAUSEA. PATIENT GIVEN PRN DOSE OF ZOFRAN. WILL CONTINUE TO MONITOR.
--- NOTE | 2018-04-05 12:57 | NUR ---
RESTART LOVENOX INJECTION DAILY TODAY PER DR. GIANNA JON.
[2018-04-05 16:31] VITALS: BP 115/55; PULSE 85; TEMP 98.3
--- NOTE | 2018-04-05 17:59 | NUR ---
PATIENT CALLED OUT REPORTING AN EPISODE OF EMESIS. PATIENT GIVEN PRN DOSE OF ZOFRAN. WILL CONTINUE TO MONITOR.
[2018-04-05 19:54] VITALS: BP 126/61; PULSE 88; TEMP 97.5
--- NOTE | 2018-04-05 20:30 | NUR ---
Patient sitting up in chair, complains of constipation, given prune juice at this time. Is alert and oriented x3. Has Right PICC line with lumens capped. Abdomen soft, bowel sounds active, lap sites dry and healing. Voiding without problem. Encouraged to stay up until 9pm. Call light within reach.
[2018-04-05 23:08] VITALS: BP 143/80; PULSE 92; TEMP 97.4
--- NOTE | 2018-04-06 01:10 | NUR ---
Patient awake, reports not sleeping. Oxygen at 2L/nc. Medicated with [place] 1 tablet at this time for generalized discomfort. IV antibiotic infusing to right PICC without redness or swelling.
[2018-04-06 04:53] VITALS: BP 133/66; PULSE 85; TEMP 98.6
--- NOTE | 2018-04-06 05:53 | NUR ---
Patient reports sleeping better after pain med. Has had 2 incontinent urine episodes this shift. Oxygen on at 2L/nc.
--- NOTE | 2018-04-06 06:01 | NUR ---
Lab attempted peripheral draw on patient, unable to obtain enough blood for the tests.
[2018-04-06 07:12] VITALS: BP 133/68; PULSE 84; TEMP 97.4
--- NOTE | 2018-04-06 07:57 | NUR ---
Pt is awake and A/Ox4 at this time, sitting up in recliner working on breakfast. Pt denies pain at this time. PICC line to right upper arm is free of complications. Pt remains on 2L O2 per NC, 100%. O2 turned down to 1L. Generalized edema noted, feet elevated. Pt denies any needs at this time, will monitor.
--- NOTE | 2018-04-06 08:56 | NUR ---
report from Destinee BAHENA.
[2018-04-06 09:40] LABS: MEAN CORPUSCULAR HGB CONC 32 g/dl (33.0-37.0); MEAN PLATELET VOLUME 9.7 fl (7.4-10.4); PLATELET COUNT 260 K/mm3 (130-400); RED BLOOD COUNT 2.56 M/mm3 (4.10-5.30); REDCELL DISTRIBUTION WIDTH-CV 15.6 % (11.5-14.5)
[2018-04-06 09:43] LABS: HEMATOCRIT 24.8 % (37.0-47.0); HEMOGLOBIN 7.8 g/dl (12.5-16.0); MEAN CELL VOLUME 97 fl (80.0-100.0); MEAN CORPUSCULAR HEMOGLOBIN 30 pg (27.0-31.0)
[2018-04-06 09:48] LABS: CALCIUM 9.2 mg/dL (8.4-10.2); CREATININE, serum 0.94 mg/dL (0.52-1.25); POTASSIUM 4.6 mmol/L (3.4-5.0)
[2018-04-06 09:49] LABS: BILIRUBIN,TOTAL 0.6 mg/dL (0.0-1.0); MAGNESIUM 1.8 mg/dL (1.6-2.3); TOTAL PROTEIN 4.9 gm/dL (6.4-8.2)
--- NOTE | 2018-04-06 10:13 | NUR ---
AND DR. DA SILVA IN TO ROUND ON PT THIS AM. NEW ORDERS RECIEVED. PICC LINE ACCESSED FOR LAB DRAWS. PT TOLERATED WELL. PT C/O CONTINUED WEAKNESS. POSSIBLE THORACENTISIS LATER TODAY. PLAN ON TRANSFER TO [facility] FOR CONTINUED REHAB AT DISCHARGE.
[2018-04-06 10:16] LABS: BAND 14 % (0-10); EOSINOPHIL 1 % (0-4); LYMPHOCYTE 1 % (20.0-51.0); METAMYELOCYTE 1 % (0-0); NEUTROPHILS 77 % (42.0-75.2); PLATELET ESTIMATE NORMAL (NORMAL)
--- NOTE | 2018-04-06 10:25 | NUR ---
Mahnaz, at [facility], reports that they can accept the patient for a skilled stay. SW informed the patient and will continue to follow.
--- NOTE | 2018-04-06 10:55 | NUR ---
PT UP TO RECLINER WITH THERAPY.
[2018-04-06 11:35] VITALS: BP 136/68; PULSE 83; TEMP 97.7
--- NOTE | 2018-04-06 14:12 | NUR ---
[facility] TROUGH RESULTS CALLED TO PHARMACY NEW ORDERS RECIEVED.
--- NOTE | 2018-04-06 14:51 | NUR ---
SPOKE WITH SALLY WATSON AND ENTERED CONSULT FOR DR. KADY FERNANDO AND NOTIFED ULTRASOUND TECHS.
[2018-04-06 16:00] VITALS: BP 129/67; PULSE 82; TEMP 97.7
--- NOTE | 2018-04-06 18:52 | NUR ---
REPORT TO FAN BAHENA.
--- NOTE | 2018-04-06 18:53 | NUR ---
REPORTTO FAN BAHENA.
[2018-04-06 18:58] VITALS: BP 109/63; PULSE 88; TEMP 98
--- NOTE | 2018-04-06 21:00 | NUR ---
Assessment completed. Patient is A&O x 4. VSS, on room at this time. Tele maintained. Denies any pain. Lungs CTA, does report some shortness of breath with activity. Abdominal lap sites x 5 with edges well approximated. Reports passing gas. Denies any nausea. Voiding with some incontinence, briefs and pericare provided. Edema noted to BLE and RUE. Double lumen PICC to RUE flushes well with good blood return. Up with assist x 1, gait steady with walker. Denies any concerns or needs at this time, call light within reach.
[2018-04-07 00:22] VITALS: BP 117/96; PULSE 86; TEMP 99.3
[2018-04-07 03:47] VITALS: BP 136/70; PULSE 82; TEMP 98
--- NOTE | 2018-04-07 07:18 | NUR ---
Patient has rested intermittently through the night. VSS, currently on 2 liters of supplemental O2 via nasal cannula. Continues to deny any pain. Up multiple times through the night with assist x 1 with incontinence of urine. Denies any concerns or needs. Currently sitting up in the chair with call light in reach.
[2018-04-07 07:29] VITALS: BP 124/72; PULSE 74; TEMP 97.5
--- NOTE | 2018-04-07 09:30 | NUR ---
Patient went down for thoracentesis this am. The radiologist decided not to do it. Patient has been doing well this am. She has been up a couple times walking in the halls. Denies pain and nausea. She is planning to discharge today. No other changes at this time. Call light within reach.
--- NOTE | 2018-04-07 12:06 | NUR ---
Patient was getting out of the bathroom and she was weak, misstepped and fell on the floor in a sitting postion according to the METALLOGRAPH[employer]ys [employer]akat . She was very weak getting up to the bathroom when walking in. She stated having a slight pain in her lower back but that is not new and is not worse. Initially she said it hurt when she fell but is better after getting back into the chair. 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 Vital signs stable. BP 133/60, SPO2 100%, WA 83, RR 18, T 97.8. Patient denies hitting her head. Checked back and back of head, no lacerations or abrasions noted. She denies pain to her legs or arms. Patient is alert and oriented. Patient is back in the chair at this time. No other changes noted. Call light within reach. Will continue to monitor.
[2018-04-07] MEDS ORDERED: AMOXICILLIN 8751 TAB PO (12:55)
[2018-04-07] MEDS ORDERED: CORDARONE200 MG/TAB PO (12:55)
[2018-04-07] MEDS ORDERED: LASIX 20MG TABL20 MG PO (12:56)
[2018-04-07] MEDS ORDERED: ELIQUIS 2.5 PO (12:57)
--- NOTE | 2018-04-07 13:47 | NUR ---
The patient is to discharge today, 04/07, to [facility] for a skilled stay. Transportation was set for 1500, via [facility]. HANH informed the patient, patient's nurse, and the patient's daughter (Tiffani) via phone. They were all in agreeance. HANH also presented and explained the IM form to the patient. The patient verbalized understanding, signed, and she was provided a copy. No additional needs at this time.
[2018-04-07 14:24] VITALS: BP 124/72; PULSE 74; TEMP 97.5
--- NOTE | 2018-04-07 15:50 | NUR ---
Patient has discharged to [facility]. Report called to the nurse at [facility]. Patient's belongings packed up and sent with patient. Information packed sent with transfer person. Family is aware patient is being discharged today.
== END 2018-04-07 15:50 | DRG 853 ==
LOC: SDCO 07:53 → SURG 14:15 → ICU 03-28 07:38 → SDCO 03-28 08:11 → ICU 03-28 08:12 → SURG 04-03 15:00
PROVIDERS: Internal Medicine Pulmonary Disease; Nurse Practitioner Family; Physician Assistant; Surgery; ADMIT Surgery
PROC: 0BQT4ZZ Repair Diaphragm, Percutaneous Endoscopic Approach (ICD-10-PCS; 2018-03-27)
PROC: 0DQL4ZZ Repair Transverse Colon, Percutaneous Endoscopic Approach (ICD-10-PCS; 2018-03-27)
PROC: 0DV44ZZ Restriction of Esophagogastric Junction, Percutaneous Endoscopic Approach (ICD-10-PCS; principal; 2018-03-27 10:00)
PROC: 0W9B3ZX Drainage of Left Pleural Cavity, Percutaneous Approach, Diagnostic (ICD-10-PCS; 2018-03-30)
PROC: 0W993ZX Drainage of Right Pleural Cavity, Percutaneous Approach, Diagnostic (ICD-10-PCS; 2018-03-30)
DX: A41.9 Sepsis, unspecified organism (principal); R65.21 Severe sepsis with septic shock; J96.01 Acute respiratory failure with hypoxia; J96.02 Acute respiratory failure with hypercapnia; K91.71 Accidental puncture and laceration of a digestive system organ or structure during a digestive system procedure; J90 Pleural effusion, not elsewhere classified; N17.9 Acute kidney failure, unspecified; J98.11 Atelectasis; E44.0 Moderate protein-calorie malnutrition; E87.4 Mixed disorder of acid-base balance; K44.9 Diaphragmatic hernia without obstruction or gangrene; K21.9 Gastro-esophageal reflux disease without esophagitis; I10 Essential (primary) hypertension; I48.0 Paroxysmal atrial fibrillation; I27.20 Pulmonary hypertension, unspecified; D69.6 Thrombocytopenia, unspecified; Z68.31 Body mass index [BMI] 31.0-31.9, adult; D50.0 Iron deficiency anemia secondary to blood loss (chronic)
CPT/HCPCS: OP; 99223; 99232-AI; 99233-AI; A4216; A9284; C1751; J0282; J0696; J0881; J1160; J1170; J1450; J1650; J1940; J2185; J2370; J2405; J2704; J2916; J3010; J3370; J3475; J7030; J7040; J7050; J7060; J7120